=== PATIENT | female | born 1935 | race Caucasian/White ===

== ENCOUNTER → 2023-07-04 13:43 | Outpatient (REF) | payer OTHER, SELFPAY | LOC: RAD 13:43 | PROVIDERS: ATTENDING PHYSICIAN Internal Medicine | DX: M25.539 Pain in unspecified wrist (principal); M79.643 Pain in unspecified hand | CPT/HCPCS: 73110; 73130 ==

== ENCOUNTER 2023-07-10 13:14 | Emergency (ER) | payer OTHER, SELFPAY ==
[2023-07-10 13:16] VITALS: BP 132/78
--- NOTE | 2023-07-10 15:59 | ED.GENMED ---
History of Present Illness
General
Chief Complaint: Skin Problem
Source: patient
Exam Limitations: none
Time Seen by Provider: 07/10/23 15:43
Travel History
Have you had any contact with someone who has COVID-19?: No
Do you have any symptoms of coronavirus? Fever > 100 degrees, chills, cough, shortness of breath, sore throat, loss of taste or smell, muscle aches, or headache?: No
History of Present Illness
History of Present Illness:
87-year-old female presents with daughter who states the left upper extremity and left leg have been increasingly swollen. She was discharged to [facility] 12 days ago after a fall. Does have a subdural hematoma. She had x-rays performed
of her left shoulder then and suction as an outpatient had x-rays of her left hand although these were negative. She is not anticoagulated but they noticed large bruising to the left shoulder. Over time the left hand has been more red and swollen.
She has dementia. No reported fever. Daughter notes she is less active than usual. They also note increased swelling in the left leg. No reported difficulty breathing. No other complaints at this time
Past History
Past History
ED Past Medical History: CVA (TIA), HTN, Other (Vitamin D deficiency, scoliosis) and Other (Dementia)
ED Past Surgical History: None
Social History
Tobacco: Non-smoker
Alcohol: None
Drug: None
Personal:
Living: with family
Employment: Retired
Family History
Family History: Other (Mother with hypertension and [place])
Phy Exam
Physical Exam
Physical Exam:
General: Well-appearing female no acute respiratory distress
HEENT: Normocephalic atraumatic
Heart: Regular rate and rhythm no murmurs
Lungs: Clear no wheeze or rales
Extremities: Significant edema noted left upper extremity and left lower extremity. No cyanosis. There is erythema noted to the left hand with associated swelling.
Neurologic: Alert ambulatory. Good muscle tone
Course
Orders/Labs/Results
Orders:
Orders
07/10/23 15:56
Venous Doppler Lwr Ext Left [US Periph Venous LOWER Ext LT] Urgent
Comment:
Reason For Exam: swelling
Venous Doppler Upr Ext Left [US Periph Venous UPPER Ext LT] Urgent
Comment:
Reason For Exam: swelling
07/10/23 17:32
Complete Blood Count/With Diff Urgent
Comprehensive Metabolic Panel Urgent
Lactic Acid Urgent
NT-proBNP Urgent
Abnormal Lab Results
07/10/23
17:32
RBC 3.63 L 10^6/uL
(4.20-5.40)
Hgb 11.6 L g/dL
(12.0-16.0)
Hct 35.3 L %
(37.0-47.0)
MCH 32.0 H pg
(27.0-31.0)
MCHC 32.9 L g/dL
(33.0-37.0)
Plt Count 465 H 10^3/uL
(130-400)
Lymphocytes % 17.6 L %
(20.5-51.1)
Creatinine 0.4 L mg/dL
(0.6-1.0)
Glucose 122 H mg/dl
(70-99)
Alkaline Phosphatase 171 H U/L
(38-126)
Albumin 3.3 L g/dl
(3.5-5.0)
07/10/23 17:32
07/10/23 17:32
Vital Signs
Initial and Last Documented VS:
Initial Vital Signs
Temp Pulse Resp BP Pulse Ox
97.8 F 97 18 132/78 98
07/10/23 13:16 07/10/23 13:16 07/10/23 13:16 07/10/23 13:16 07/10/23 13:16
Last Documented Vital Signs
Temp Pulse Resp BP Pulse Ox
99.7 F 92 20 158/84 95
07/10/23 17:20 07/10/23 17:20 07/10/23 17:20 07/10/23 17:20 07/10/23 17:20
MDM/Problems Addressed
Differential Diagnosis Includes:
Swelling to left arm and leg. Question dependent edema from contusions versus DVTs. Question also cellulitis given the erythema. Ultrasounds of the left arm and leg are pending. Will check labs.
*Critical Care Note
Total Time (30-74mins, 75-104mins- exclusive of procedures): Not Applicable
Update Note
Update Note:
Ultrasound left upper and lower extremity were negative for DVT. Lactic normal white count normal. Question inflammatory response in left wrist versus early cellulitis. Started on Keflex to cover. She has appointment with orthopedics tomorrow.
No indication for admission at this time. Stable for discharge
ED Attending Note
-
Portions of this chart may have been created with voice recognition software.� Occasional wrong word or��sound alike� substitutions may have occurred due to the inherent limitations of voice recognition software.
Discharge Plan
Departure
Patient Disposition: Home (Routine Discharge)
Date of Disposition: 07/10/23
Time of Disposition: 18:40
Patient with high blood pressure during this ER visit?: No
Discharge Problem:
Edema
Instructions: Dependent Edema (DC), Cellulitis (Skin Infection), Adult (DC)
Prescriptions:
New
cephalexin 500 mg capsule
500 mg PO TID 7 Days Qty: 21 0RF
No Action
ergocalciferol (vitamin D2) 2,000 UNIT tablet
50,000 unit PO .[id number]
Patient Comments:
On Monday
amlodipine 5 MG tablet
5 mg PO QPM
aspirin 81 MG tablet,delayed release (DR/EC)
81 mg PO QPM
cefuroxime axetil 500 MG tablet
500 mg PO BID Qty: 10 0RF
azithromycin [Zithromax] 500 MG tablet
500 mg PO DAILY Qty: 5 0RF
albuterol sulfate [ProAir HFA] 90 mcg/actuation HFA aerosol inhaler
1 puff inhalation Q4HPRN PRN (Reason: shortness of breath) Qty: 6.7 0RF
cephalexin 500 mg capsule
500 mg PO BID 7 Days Qty: 14 0RF
Referrals:
Desiree Sanchez MD [Family Provider] -
Activity Restrictions/Additional Instructions:
Elevate arm for swelling. Use warm compresses as well. Use antibiotic as directed. Please return here for worsening send otherwise follow-up with orthopedics as planned
Interventions
Interventions:
*Risk Screen - Suicide Last Done: 07/10/23 13:16
*General Assessment Last Done: 07/10/23 13:16
*Neglect/Abuse Screening Last Done: 07/10/23 13:16
Discharge Date and Time
Print Language: ZAMBIAN
[2023-07-10 17:17] VITALS: BP 158/84
[2023-07-10 17:20] VITALS: BP 158/84
[2023-07-10 17:21] VITALS: BMI 29.8
[2023-07-10 17:40] LABS: % Basophils 0.6 % (0-2); % Eosinophils 0.8 % (0-6); % Immature Granulocytes 0.2 % (0-0.5); % Lymphocytes 17.6 % (20.5-51.1); % Monocytes 6.9 % (1.7-9.3); % Neutrophils 73.9 % (42.2-75.2); Absolute Basophils 0.1 10^3/uL (0-0.2); Absolute Eosinophils 0.1 10^3/uL (0-0.7); Absolute Lymphocytes 1.5 10^3/uL (1.2-3.4); Absolute Monocytes 0.6 10^3/uL (0.1-0.6); Absolute Neutrophils 6.1 10^3/uL (1.4-6.5); Hematocrit 35.3 % (37.0-47.0); Hemoglobin 11.6 g/dL (12.0-16.0); Mean Corp Hgb Conc. 32.9 g/dL (33.0-37.0); Mean Corpuscular Volume 97.2 fL (81.0-99.0); Nucleated Red Blood Cells % 0 %; Platelet Count 465 10^3/uL (130-400); Red Blood Cell Count 3.63 10^6/uL (4.20-5.40); Red Cell Dist. Width 13.4 % (11.5-14.5); White Blood Cell Count 8.2 10^3/uL (4.8-10.8)
[2023-07-10 17:54] LABS: ALT (SGPT) 23 U/L (0-35); AST (SGOT) 26 U/L (14-36); Albumin 3.3 g/dl (3.5-5.0); Alkaline Phosphatase 171 U/L (38-126); Blood Urea Nitrogen 12 mg/dl (7-17); Calcium 8.8 mg/dl (8.4-10.2); Carbon Dioxide 27 mmol/L (22-30); Chloride 102 mmol/L (98-107); Estimated Creatinine Clearance 48 ml/min; Glucose 122 mg/dl (70-99); Potassium 3.9 mmol/L (3.5-5.1); Sodium 136 mmol/L (135-145); Total Bilirubin 0.4 mg/dl (0.2-1.3); Total Protein 6.5 g/dl (6.3-8.2); eGFR > 60.00
[2023-07-10 18:00] VITALS: BP 148/78
[2023-07-10 18:02] LABS: NT-proBNP 105 pg/ml
[2023-07-10 18:24] LABS: Lactic Acid 1.3 mmol/L (0.7-2.0)
[2023-07-10 19:00] VITALS: BP 157/78
== END 2023-07-10 19:39 | disposition home or self-care (01) ==
LOC: EMR 13:14
PROVIDERS: Physician Assistant; EMERGENCY PHYSICIAN Emergency Medicine; FAMILY PHYSICIAN Internal Medicine
DX: R60.9 Edema, unspecified (principal); S40.012A Contusion of left shoulder, initial encounter; X58.XXXA Exposure to other specified factors, initial encounter
CPT/HCPCS: 99284; 80053; 83605; 83880; 85025; 93971

== ENCOUNTER → 2023-11-08 13:52 | Outpatient (REF) | payer OTHER, SELFPAY | LOC: HWRAD 13:52 | PROVIDERS: ATTENDING PHYSICIAN Nurse Practitioner Family | DX: R39.9 Unspecified symptoms and signs involving the genitourinary system (principal) | CPT/HCPCS: 76770 ==

== ENCOUNTER 2024-01-24 20:12 | Inpatient (IN) | payer OTHER, SELFPAY ==
[2024-01-24] VITALS (7 sets, daily range): BP systolic 129–195; BP diastolic 64–97; BMI 26.1
--- NOTE | 2024-01-24 16:44 | ED.GENMED ---
History of Present Illness
General
Chief Complaint: Weakness
Source: ambulance crew
Exam Limitations: dementia
Time Seen by Provider: 01/24/24 16:42
History of Present Illness
History of Present Illness:
See MDM
Past History
Past History
ED Past Medical History: CVA (TIA), HTN, Other (Vitamin D deficiency, scoliosis) and Other (Dementia)
ED Past Surgical History: None
Social History
Tobacco: Non-smoker
Alcohol: None
Drug: None
Personal:
Living: with family
Employment: Retired
Family History
Family History: Other (Mother with hypertension and [place])
Phy Exam
Physical Exam
Physical Exam:
See MDM
Sepsis
Sepsis Screening
Sepsis Assessment: Sepsis
Sepsis Screen
Sepsis Screen: Sepsis
Date: 01/24/24
Time: 19:07
Course
Orders/Labs/Results
Orders:
Orders
01/24/24 16:48
Straight cath- Treatment ONCE
01/24/24 17:01
Urinalysis Reflex To Culture Urgent
Date Specimen was Collected: 01/24/24
Time Specimen was Collected: 16:59
Urine Microscopic Reflex Cult Urgent
Urine Culture Urgent
RICHARD Source: U
Specimen Description:
Date Specimen was Collected: 01/24/24
Time Specimen was Collected: 16:59
01/24/24 17:02
0.9% Sodium Chloride 1000 ml [Nss] 1,000 ml IV BOLUS
Acetaminophen [Tylenol/Feverall] 650 mg RECTAL NOW STA
01/24/24 17:17
Complete Blood Count/With Diff Urgent
Comprehensive Metabolic Panel Urgent
Lactic Acid Q4H
Comment: CANCEL 2nd LACTIC ACID IF 1st LACTIC ACID IS LESS THAN 2
Blood Culture Q30M
RICHARD Source: Blood/Venous
Specimen Description:
01/24/24 17:45
Blood Culture Q30M
RICHARD Source: Blood/Venous
Specimen Description:
01/24/24 17:59
CR Chest Portable - 1 View Urgent
Comment:
Reason For Exam: fever, weakness
Reason Study Needs to be Portable: Patient Unstable
01/24/24 19:05
Influenza A+B Rapid Molecular Urgent
RICHARD Source: Nasal Swab
Specimen Description:
Cefepime HCl [Maxipime] 1,000 mg IV NOW STA
01/24/24 19:06
COVID-19 Antigen Urgent
Source: Nasal Swab
Abnormal Lab Results
01/24/24 01/24/24
17:01 17:17
WBC 12.1 H 10^3/uL
(4.8-10.8)
MCHC 32.3 L g/dL
(33.0-37.0)
Plt Count 424 H 10^3/uL
(130-400)
Absolute Neuts (auto) 10.0 H 10^3/uL
(1.4-6.5)
Neutrophils % 82.6 H %
(42.2-75.2)
Lymphocytes % 12.2 L %
(20.5-51.1)
Carbon Dioxide 21 L mmol/L
(22-30)
BUN 19 H mg/dl
(7-17)
Glucose 120 H mg/dl
(70-99)
Alkaline Phosphatase 131 H U/L
(38-126)
Urine Ketones 3+ A
(Negative)
Ur Occult Blood Reflex 3+ A
(Negative)
Urine RBC 7-10 A /HPF
(0-2)
Urine Bacteria (Reflex) Moderate A
(Negative)
01/24/24 17:17
01/24/24 17:17
Vital Signs
Initial and Last Documented VS:
Initial Vital Signs
Temp Pulse Resp BP Pulse Ox
98.4 F 110 22 161/89 94
01/24/24 16:43 01/24/24 16:43 01/24/24 16:43 01/24/24 16:43 01/24/24 16:43
Last Documented Vital Signs
Temp Pulse Resp BP Pulse Ox
101.5 F H 106 20 153/68 94
01/24/24 18:39 01/24/24 18:00 01/24/24 18:00 01/24/24 18:00 01/24/24 18:00
MDM/Problems Addressed
Differential Diagnosis Includes:
HPI and MDM Narrative:
88-year-old female presenting with concern for a UTI. Per EMS, patient is significant demented and disoriented. On exam, patient is demented and not answering questions appropriately. EMS stating that she was recently taken off antibiotics for
chronic UTI. Will obtain basic blood work and check urine
Physical exam
General: Confused, disoriented, laying in bed comfortably
HEENT: protecting airway
Neck: appears supple
CV: No evidence of cyanosis
Resp: No accessory muscle use. Lungs clear
Abd: Non-distended. Soft and nontender
Extremities: No deformities
Neuro: alert
Psych: flat affect
Skin: Intact
Problems Addressed including Acute and Chronic Conditions affecting care:
1. Confusion
Acuity: acute on chronic
Prognosis: stable
Details: Urinalysis pending, will obtain basic blood
Updates
Patient found to be febrile. Will obtain cultures, lactic acid and provide Tylenol
Although urinalysis does not point to urinary tract infection, it is extremely malodorous. Given that there is bacteria, will start cefepime. Will look for alternative source of infection such as COVID and flu. Chest x-ray performed showing no
obvious pneumonia. On multiple reexaminations, patient continues to have a nontender abdomen
Differential Diagnosis (but not limited to): UTI, hyponatremia, dehydration
Testing considered: Chest x-ray but lungs clear
Drug therapy (if applicable): OTC meds, please see d/c instruction regarding Rx drugs
Amount and/or Complexity of Data Reviewed
Clinical info obtained from: EMS
External data reviewed: N/A
Labs I independently reviewed (but not limited to): Leukocytosis
Radiology: X-ray independently reviewed: Chest x-ray clear
Pulse Ox: not hypoxic
EKG independently reviewed: N/A
Microsystems Engineer: Sinus rhythm
Critical Care: N/A
Risk of Complication:
Social Determinants of health: Good social support
Discussed with other providers: Hospitalist
Escalation of Care includes Admit/Obs: Given the fever, increased confusion and malodorous urine, will admit
Occasional wrong word or 'sound a like' substitutions may have occurred due to the inherent limitations of voice recognition software. Read the chart carefully and recognize, using context, where substitutions have occurred.
*Critical Care Note
Total Time (30-74mins, 75-104mins- exclusive of procedures): Not Applicable
ED Attending Note
-
Portions of this chart may have been created with voice recognition software.� Occasional wrong word or��sound alike� substitutions may have occurred due to the inherent limitations of voice recognition software.
Discharge Plan
Departure
Patient Disposition: Admit
Date of Disposition: 01/24/24
Time of Disposition: 19:07
Admit to: Med/Surg
Presentation/result/management discussed w/ accepting MD/DO: Hospitalist
Discharge Problem:
Bacteriuria
Prescriptions:
No Action
ergocalciferol (vitamin D2) 2,000 UNIT tablet
50,000 unit PO .[id number]
Patient Comments:
On Monday
amlodipine 5 MG tablet
5 mg PO QPM
aspirin 81 MG tablet,delayed release (DR/EC)
81 mg PO QPM
cefuroxime axetil 500 MG tablet
500 mg PO BID Qty: 10 0RF
azithromycin [Zithromax] 500 MG tablet
500 mg PO DAILY Qty: 5 0RF
albuterol sulfate [ProAir HFA] 90 mcg/actuation HFA aerosol inhaler
1 puff inhalation Q4HPRN PRN (Reason: shortness of breath) Qty: 6.7 0RF
cephalexin 500 mg capsule
500 mg PO BID 7 Days Qty: 14 0RF
cephalexin 500 mg capsule
500 mg PO TID 7 Days Qty: 21 0RF
Referrals:
Génesis Santa CRNP [Family Provider] -
Interventions
Interventions:
*Risk Screen - Suicide Last Done: 01/24/24 16:43
*General Assessment Last Done: 01/24/24 16:43
*Neglect/Abuse Screening Last Done: 01/24/24 16:43
*ED COVID-19 Vaccine History Last Done: 01/24/24 16:43
ED- Cardiac Assessment Last Done: 01/24/24 17:38
ED- Neurological Assessment Last Done: 01/24/24 17:38
ED- Pulmonary Assessment Last Done: 01/24/24 17:38
Discharge Date and Time
Print Language: GERMAN
[2024-01-24 17:07] LABS: Urine Albumin Trace (Neg - Trace); Urine Bilirubin Negative (Negative); Urine Character Clear (Clear); Urine Color Yellow; Urine Glucose Negative (Negative); Urine Ketone 3+ (Negative); Urine Leukocyte Negative (Negative); Urine Nitrite Negative (Negative); Urine Occult Blood 3+ (Negative); Urine Urobilinogen Negative (Neg - 1+)
[2024-01-24 17:14] LABS: Urine Mucus Moderate
[2024-01-24 17:18] LABS: Urine Bacteria Moderate (Negative); Urine White Cell 0-2 /HPF (0-5)
[2024-01-24] MEDS: NSS 1000 IV ×2 (17:21→23:16)
[2024-01-24] MEDS: TYLENOL/FEVERALL 650 MG RECTAL (17:29)
[2024-01-24 17:31] LABS: % Basophils 0.3 % (0-2); % Eosinophils 0.1 % (0-6); % Immature Granulocytes 0.3 % (0-0.5); % Lymphocytes 12.2 % (20.5-51.1); % Monocytes 4.5 % (1.7-9.3); % Neutrophils 82.6 % (42.2-75.2); Absolute Lymphocytes 1.5 10^3/uL (1.2-3.4); Absolute Monocytes 0.5 10^3/uL (0.1-0.6); Hematocrit 40.3 % (37.0-47.0); Mean Corp Hgb Conc. 32.3 g/dL (33.0-37.0); Mean Corpuscular Hgb 28.6 pg (27.0-31.0); Mean Corpuscular Volume 88.6 fL (81.0-99.0); Mean Platelet Volume 8.3 fL (7.4-10.4); Nucleated Red Blood Cells % 0 %; Platelet Count 424 10^3/uL (130-400); Red Blood Cell Count 4.55 10^6/uL (4.20-5.40); Red Cell Dist. Width 14.2 % (11.5-14.5); White Blood Cell Count 12.1 10^3/uL (4.8-10.8)
[2024-01-24 17:44] LABS: ALT (SGPT) 15 U/L (0-35); AST (SGOT) 22 U/L (14-36); Albumin 4.2 g/dl (3.5-5.0); Alkaline Phosphatase 131 U/L (38-126); Blood Urea Nitrogen 19 mg/dl (7-17); Calcium 9.5 mg/dl (8.4-10.2); Carbon Dioxide 21 mmol/L (22-30); Chloride 104 mmol/L (98-107); Glucose 120 mg/dl (70-99); Potassium 4.3 mmol/L (3.5-5.1); Sodium 141 mmol/L (135-145); Total Bilirubin 0.8 mg/dl (0.2-1.3); Total Protein 7.6 g/dl (6.3-8.2); eGFR > 60.00
[2024-01-24 18:12] LABS: Lactic Acid 1.3 mmol/L (0.7-2.0)
[2024-01-24] MEDS: MAXIPIME 1000 MG IV (19:22)
[2024-01-24 20:00] LABS: COVID-19 Antigen Negative (Negative)
--- NOTE | 2024-01-24 20:05 | HPS.HSE ---
Family Physician
-
Family Physician: YORDAN Joe
Chief Complaint
-
Weakness
History of Present Illness
This is an 88-year-old female with past medical history significant for dementia, hypertension, prior CVA, urinary tract infections who presents from home with worsening weakness and lethargy over the last 2 days.
Patient has advanced dementia and lives at home with family and is mobile with assistance and assistive devices at home. She also is able to tolerate p.o. self and generally has a good appetite. Over the last 2 days the patient has been more
somnolent getting up late in the afternoon and more difficult to arouse. Family believe that she had some deep breathing but no cough. They noted some puffiness of her face and fevers at home. She had no diarrhea no nausea or vomiting. She was
unable to verbalize any complaints of self. They said she eat and then immediately go back to sleep. She has no known sick contacts at home. She has no recent hospitalizations. She has had no recent antibiotic use. Denies any bedsores or ulcers
or skin changes. No joint swelling or redness.
In the emergency department the patient had a fever of 101.5, temperature blood pressure was 150/60 and she was tachycardic to 106. She was satting 94 to 96% on room air. Chest x-ray shows no acute infiltrates. UA was positive for bacteria and
blood but no leukocytosis. CBC shows a CBC shows leukocytosis to 12,000 but is otherwise unremarkable. BUN/creatinine and electrolytes were within normal limits.
Medical History
Past Medical History
Past Medical History: Reports Dementia and HTN
Additional Past Medical History:
Prior UTI
Past Surgical History: Reports None
Social History
Unable to obtain full social history at this time due to: Dementia
Tobacco: Non-smoker
Alcohol: None
Drug: None
Personal:
Living: With Family
Employment: Retired
Family History
Family History: Not pertinent
Allergies / Home Medications
Allergies reflects when Allergies were last updated in [employer].
Home Medications with original date entered in [employer]
Allergy/Medication List:
Allergies
Allergy/AdvReac Type Severity Reaction Status Date / Time
No Known Allergies Allergy Verified 01/24/24 19:56
Home Medications
amlodipine 5 mg tablet 5 mg PO QPM 06/14/17
aspirin 81 mg tablet,delayed release 81 mg PO QPM 06/14/17
methenamine hippurate 1 gram tablet 1 g PO QPM 01/24/24
Review of Systems
-
History Source: Family
Constitutional: Reports Fever and Sleep Disturbance
EENT: Reports No Symptoms
Respiratory: Reports No Symptoms
Cardiac: Reports No Symptoms
Abdomen/GI: Reports No Symptoms
: Reports No Symptoms
Musculoskeletal: Reports No Symptoms
Skin: Reports No Symptoms
Neurological: Reports Weakness
Endocrine: Reports No Symptoms
Hematologic/Lymphatic: Reports No Symptoms
Psych: Reports No Symptoms
Physical Exam
Vital Signs
Vital Signs
Temp Pulse Resp BP Pulse Ox
101.5 F H 102 25 141/71 94
01/24/24 18:39 01/24/24 19:45 01/24/24 19:45 01/24/24 19:00 01/24/24 19:45
Physical Exam
General: No Apparent Distress and Fever
HEENT: NormoCephalic, Anicteric, PERRLA, No Ptosis, Nose Appears Normal, Neck Nontender and Other (dry mucus membrnase)
Respiratory: Clear
Cardiac: S1/S2 and Regular Rhythm
Breast: Deferred by me
GI: Soft, Non Distended and Normal Bowel Sounds
Rectal: Deferred by Provider
Genito-urinary: Clear Urine
Musculoskeletal: No Clubbing, No Cyanosis and No Edema
Skin: Warm
Neuro: Awake, Alert, Oriented (not oriented to person, place or time), Nonfocal/grossly intact and Other (not interactive, )
Hematologic/Lymphatic: No Lymphadenopathy
Psych: Calm
Laboratory Results
-
01/24/24 17:17
01/24/24 17:17
Laboratory Results
Lactic Acid Cancelled 01/24/24 21:15
Total Bilirubin 0.8 mg/dl (0.2-1.3) 01/24/24 17:17
AST 22 U/L (14-36) 01/24/24 17:17
ALT 15 U/L (0-35) 01/24/24 17:17
Alkaline Phosphatase 131 U/L (38-126) H 01/24/24 17:17
Data Reviewed
-
Diagnostic Radiology: Image Personally Visualized and interpreted
Lab Data: Labs Reviewed by me
Old Records: Reviewed
Impression/Plan
-
IMPRESSION:
88-year-old female with advanced dementia who presents to the emergency department with weakness and fevers. Initial workup in the emergency department is mostly uninformative with negative COVID flu and chest x-ray was clear. UA was positive for
bacteria and blood and had a foul-smelling odor. Suspected UTI. Abdominal exam was benign but equivocal.
PLAN:
1. Fever - UTI suspected with possibly pyelonephritis but source not entirely clear at this time
- admit to med/surg
- blood cultures and urine cultures sent
- started abx, cefepime in Ed, will continue w/ ceftriaxone for now
- antipyretics and IV fluids.
-w/ blood in urine, will get ct a/p to rule out obstructing stone and intraabdominal process and perhaps confirm the pyelonephritis
2. Dementia - appear to have advance dementia but is being cared for at home. Ambulatory minimally with assist
- PT evaluation
- regular diet tolerated at home.
3. HTN
- continue amlodipine,
- asa 81 mg for strokes
DVT PPX - lovenox sq
Code status - DNR
[2024-01-25] MEDS: FLAGYL 500 MG 100 IV (00:39)
--- NOTE | 2024-01-25 05:20 | PTCARENOTE ---
Pt received from ED via stretcher. Pulled over to bed x2 w/o incident. AAOx1, plesantly confused, drowsy and lethargic. Admission completed w/daughter Karlie. Full physical assessment as documented (refer to worklist). NSS infusing via #22 RH at
80 mL/hr without complication. Bed alarm active for safety. Call salazar within reach. Plan of care ongoing.
[2024-01-25 07:30] VITALS: BP 163/81
[2024-01-25 08:12] LABS: Blood Urea Nitrogen 15 mg/dl (7-17); Calcium 8.9 mg/dl (8.4-10.2); Carbon Dioxide 26 mmol/L (22-30); Chloride 104 mmol/L (98-107); Estimated Creatinine Clearance 36 ml/min; Glucose 111 mg/dl (70-99); Procalcitonin 0.28 ng/ml (0.0-0.25); Sodium 142 mmol/L (135-145); eGFR > 60.00
[2024-01-25] MEDS: ZOSYN 50 IV ×3 (08:54→19:19)
[2024-01-25 09:09] LABS: Hematocrit 38.2 % (37.0-47.0); Hemoglobin 11.8 g/dL (12.0-16.0); Mean Corp Hgb Conc. 30.9 g/dL (33.0-37.0); Mean Corpuscular Hgb 28.3 pg (27.0-31.0); Mean Corpuscular Volume 91.6 fL (81.0-99.0); Mean Platelet Volume 8.4 fL (7.4-10.4); Platelet Count 363 10^3/uL (130-400); Red Blood Cell Count 4.17 10^6/uL (4.20-5.40); Red Cell Dist. Width 14.4 % (11.5-14.5); White Blood Cell Count 11.1 10^3/uL (4.8-10.8)
--- NOTE | 2024-01-25 10:03 | W.PN.HOSP.TC ---
Today's Communication/Plan
-
See PN
Assessment / Plan
Assessment / Plan
88yo F with Advanced dementia, resident of memory care unit, PMHx of recurrent UTI, HTN, CVA sent with fevers and AMS . Recently was stopped on UTI ppx with hippurate. Found UTI and colitis with constipation. Patient is awake and cooperative with
significant dementia though.
A/P:
#UTI
#Concern for stercoral colitis
Zosyn
Laxatives
UCX
Bcx
#Advanced dementia
d/c back to memory care unit when able
PT/OT
#Hx of CVA
on ASA
unclear why no statin - start Lipitor
#4.4cm R ovarian cyst
no follow up advised
#DIverticulosis w/o diverticulitis
mike fiber diet
#DJD
tylenol PRN
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
LFT WNL
no clinical significance
With advanced dementia - questionable if further w/u needed
Alk.phos might be from bone origin
WIll defer to facility doctor
#essential HTN
cont Norvasc
DVT ppx lovenox
DNR/DNI as per paperwork on admission
I have spent at least 59min reviewing chart, test results, communication with consultants and direct patient care
Anticipated Discharge: 24 - 48 hours
Subjective/Interval History
-
Date of Service: January 25, 2024
Objective Data
-
Labs:
Laboratory Results
01/25/24 01/25/24
07:16 07:17
WBC 11.1 H
Hgb 11.8 L
Hct 38.2
Plt Count 363
Sodium 142
Potassium 4.0
Chloride 104
Carbon Dioxide 26
BUN 15
Creatinine 0.7
Glucose 111 H
Calcium 8.9
Vital Signs:
Vital Signs
Temp Pulse Resp BP Pulse Ox
98.4 F 86 20 163/81 96
01/25/24 07:30 01/25/24 07:30 01/25/24 07:30 01/25/24 07:30 01/25/24 07:30
I&O
01/24/24 01/25/24 01/26/24
06:59 06:59 06:59
Intake Total 100 / 100 400 / 400
Balance 100 / 100 400 / 400
Review of Systems
-
Unable to obtain full review of systems at this time due to: Dementia
Physical Exam
-
General: No Apparent Distress
HEENT: Normocephalic
Respiratory: Clear to Auscultation
Cardiac: Regular Rhythm
GI: Soft, Nontender and Nondistended
Musculoskeletal: No Clubbing, No Cyanosis and No Edema
Neuro: Awake, Alert, Oriented (to herself) and No Motor Deficits
Psych: Calm and Apparent Dementia
--- NOTE | 2024-01-25 10:42 | CM ---
Pt has dementia. Spoke w/ daughter, Jaron for information
Pt lives w/ other daughter, Karlie, her son-in-law and granddaughter in a [address].
Pt has a lot of family support as both daughters are available and present per Jaron.
Per Jaron, pt prev. independent w/ walker and gets assisted w/ bathing/showering as she is unable to do so due to dementia
Pt also has shower rails for support, Jaron will explore getting some rails for her home for when pt visits
[facility] SNF in the past
[facility] VN/PT in the past. Per Jaron, if HH is recommended, family will poss explore [facility] again or refer to a new agency
PT/OT eval pending. Will await recommendations
Address, points of contact and insurance verified
PCP: Dr. Desiree Sanchez
Pharmacy: [facility]
Plan: Home w/ poss VN/PT; pending PT/OT eval
[2024-01-25 15:59] VITALS: BP 165/69
[2024-01-25 16:25] VITALS: BP 165/69
[2024-01-25 16:27] VITALS: BP 165/61; PULSE 99; O2SAT 97
[2024-01-25] MEDS: LOVENOX 40 MG SC (17:38)
[2024-01-25] MEDS: ASPIR LOW (ENTERIC COATED) 81 MG PO (17:39)
[2024-01-25] MEDS: LIPITOR 40 MG PO (17:39)
[2024-01-25] MEDS: NORVASC 5 MG PO (17:39)
[2024-01-25] MEDS: SENOKOT-S 2 TABLET PO (19:11)
[2024-01-25] MEDS: NSS 1000 IV (21:47)
[2024-01-25 23:42] VITALS: BP 158/119
[2024-01-26] MEDS: ZOSYN 50 IV ×4 (02:30→20:47)
[2024-01-26 03:00] VITALS: BP 141/73
[2024-01-26 08:17] VITALS: BP 143/72
[2024-01-26 08:24] LABS: % Basophils 0.2 % (0-2); % Eosinophils 0.4 % (0-6); % Immature Granulocytes 0.5 % (0-0.5); % Lymphocytes 16.5 % (20.5-51.1); % Monocytes 8.3 % (1.7-9.3); % Neutrophils 74.1 % (42.2-75.2); Absolute Immature Granulocytes 0.1 10^3/uL (0-0.05); Absolute Lymphocytes 1.6 10^3/uL (1.2-3.4); Absolute Monocytes 0.8 10^3/uL (0.1-0.6); Hematocrit 33.3 % (37.0-47.0); Hemoglobin 10.4 g/dL (12.0-16.0); Mean Corp Hgb Conc. 31.2 g/dL (33.0-37.0); Mean Corpuscular Hgb 28.9 pg (27.0-31.0); Mean Corpuscular Volume 92.5 fL (81.0-99.0); Mean Platelet Volume 8.8 fL (7.4-10.4); Nucleated Red Blood Cells % 0 %; Platelet Count 308 10^3/uL (130-400); Red Cell Dist. Width 14.4 % (11.5-14.5); White Blood Cell Count 9.4 10^3/uL (4.8-10.8)
[2024-01-26 08:44] LABS: ALT (SGPT) 12 U/L (0-35); AST (SGOT) 18 U/L (14-36); Albumin 2.9 g/dl (3.5-5.0); Alkaline Phosphatase 95 U/L (38-126); Blood Urea Nitrogen 19 mg/dl (7-17); Calcium 8.4 mg/dl (8.4-10.2); Carbon Dioxide 25 mmol/L (22-30); Chloride 107 mmol/L (98-107); Estimated Creatinine Clearance 42 ml/min; Glucose 130 mg/dl (70-99); Potassium 3.4 mmol/L (3.5-5.1); Sodium 141 mmol/L (135-145); Total Bilirubin 0.5 mg/dl (0.2-1.3); Total Protein 5.8 g/dl (6.3-8.2); eGFR > 60.00
[2024-01-26] MEDS: MIRALAX 17 GRAMS PO (10:05)
[2024-01-26] MEDS: SENOKOT-S 2 TABLET PO ×2 (10:05→20:42)
[2024-01-26] MEDS: FLUSH (NSS) 1 FLUSH IV ×3 (10:06→14:02)
--- NOTE | 2024-01-26 10:21 | PHA.VAN.IN ---
Assessment
- Assessment
Renal Function: Appears similar to baseline (0.8 on 04/20/2022)
Maximum Temperature: 100.7 on 01/25/24 23:42
Minimum Temperature: 97.6 on 01/26/24 08:17
Concomitant Antimicrobials: Piperacillin-tazobactam
AUC Dosing Plan
- Dosing Variables
Dosing Weight (kg): 51
Dosing CrCl (ml/min): 42
Vd coefficient (L/kg): 0.7
- Empiric Dosing
Initial / Loading Dose: Vancomycin 1000mg IV x 1 dose today (Per Dr Ballesteros)
Maintenance Regimen: Vancomycin 750mg IV Q24h start 01/27/24 at 06:00
Estimated AUC (mcg*h/mL): 546
Estimated Peak (mcg*h/mL): 34
Estimated Trough (mcg/ml): 14
Estimated Half Life (H): 18
- Monitoring
No levels ordered at this time: Will order levels according to vancomycin dosing protocol
Pharmacokinetics Vancomycin I
- -
Patient Age: 88
Patient Sex: Female
Vancomycin Day #: 1
Indication: Bacteremia
Requesting Provider: Dr Aura Ballesteros
Pertinent Antimicrobial Allergies:
No antibiotic allergies
Height / Weight:
Height 4 ft 7 in
Actual Weight 50.944 kg
Pertinent Past Medical History: Frequent UTIs recent cipro x 5 days 01/11/24
- Vital Signs / Lab Results
Temp Pulse Resp BP Pulse Ox
97.6 F 96 17 143/72 96
01/26/24 08:17 01/26/24 08:17 01/26/24 08:17 01/26/24 08:17 01/26/24 09:57
Lab Results - Hematology
01/24/24 01/25/24 01/26/24
17:17 07:16 07:18
WBC 12.1 H 11.1 H 9.4
Lab Results - Chemistry
01/24/24 01/25/24 01/26/24
17:17 07:17 07:18
BUN 19 H 15 19 H
Creatinine 0.7 0.7 0.6
Estimated Creat Clear 36 42
Albumin 4.2 2.9 L
01/24/24 01/24/24
17:17 21:15
Lactic Acid 1.3 Cancelled
Lab Results - Urine
01/24/24
17:01
Urine Nitrite (Reflex) Negative
Leukocyte Esterase Rfl Negative
Urine WBC (Reflex) 0-2
Urine Bacteria (Reflex) Moderate A
Microbiology Results
01/24/24 19:26 Blood Culture - Preliminary
Blood/Venous Positive culture in progress
Gram Stain - Preliminary
01/24/24 17:17 Blood Culture - Preliminary
Blood/Venous No Growth in 24 hours- Final report to follow
01/24/24 19:26 Influenza Types A & B (JESUS) - Final
Nasal Swab Negative for Influenza A & B, NAAT
Negative results must be combined with clinical observations
and patient history.
Nucleic Acid Amplification test (NAAT)performed on the
[employer] platform.
[2024-01-26] MEDS: VANCOCIN 200 IV (10:46)
[2024-01-26 11:59] VITALS: BP 120/87
--- NOTE | 2024-01-26 12:09 | W.PN.HOSP.TC ---
Today's Communication/Plan
-
cont ceftriaxone
add Vanco and repeat Bcx
PT/OT to cont working with the patient to determine disposition
Assessment / Plan
Assessment / Plan
88yo F with Advanced dementia, PMHx of recurrent UTI, HTN, CVA sent with fevers and AMS . Recently was stopped on UTI ppx with hippurate. Found UTI and colitis with constipation. Patient is awake and cooperative with significant dementia.
A/P:
#UTI
#Concern for stercoral colitis
Zosyn
Laxatives
UCX
#Bacteremia
1 set with GPC - suspect contaminant
Repeat Bcx
VAnco pending identification of bacteria
#Advanced dementia
Patient lives at home with a lot of family support
PT/OT - patient is poorly cooperative, needs family encouragement for participation
#Hx of CVA
on ASA
unclear why no statin - start Lipitor
#4.4cm R ovarian cyst
no follow up advised
#Diverticulosis w/o diverticulitis
mike fiber diet
#DJD
tylenol PRN
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
LFT WNL
With advanced dementia - questionable if further w/u needed
Will defer to facility doctor
#essential HTN
cont Norvasc
DVT ppx lovenox
DNR/DNI as per paperwork on admission
I have spent at least 39min reviewing chart, test results, communication with consultants and direct patient care
Anticipated Discharge: > 48 hours
Subjective/Interval History
-
Date of Service: January 26, 2024
Objective Data
-
Labs:
Laboratory Results
01/26/24
07:18
WBC 9.4
Hgb 10.4 L
Hct 33.3 L
Plt Count 308
Sodium 141
Potassium 3.4 L
Chloride 107
Carbon Dioxide 25
BUN 19 H
Creatinine 0.6
Glucose 130 H
Calcium 8.4
Total Bilirubin 0.5
AST 18
ALT 12
Alkaline Phosphatase 95
Vital Signs:
Vital Signs
Temp Pulse Resp BP Pulse Ox
97.6 F 96 17 143/72 96
01/26/24 08:17 01/26/24 08:17 01/26/24 08:17 01/26/24 08:17 01/26/24 09:57
I&O
01/25/24 01/26/24 01/27/24
06:59 06:59 06:59
Intake Total 100 / 100 1380 / 1380
Balance 100 / 100 1380 / 1380
Review of Systems
-
Unable to obtain full review of systems at this time due to: Dementia
Physical Exam
-
General: No Apparent Distress
HEENT: Normocephalic
Respiratory: Clear to Auscultation
Cardiac: Regular Rhythm
GI: Soft, Nontender and Nondistended
Musculoskeletal: No Clubbing, No Cyanosis and No Edema
Neuro: Awake and Alert
Psych: Apparent Dementia
[2024-01-26] MEDS: TYLENOL 650 MG PO ×2 (12:13→20:51)
--- NOTE | 2024-01-26 13:59 | CM ---
Chart reviewed. Per PT/OT, currently rec. SNF vs HH.
CM spoke w/ pt daughter, Jaron, re therapy recommendation
Per Jaron, family does not want pt to go to SNF and is agreeable for pt to d/c home w/ HC
[facility] identified for VN/PT. Referral submitted in [facility]
Daughter requested for hospitalist to speak w/ her sister who is currently bedside w/ pt
CAROLYN TT hospitalist to speak w/ family and for VN/PT order
Plan: Home w/ [facility] ([facility])
[2024-01-26 16:05] VITALS: BP 131/74
--- NOTE | 2024-01-26 16:49 | PTCARENOTE ---
Pt sleeping but easily arousable; oriented to name; occ answers 'yes' and 'no ' to questions; verbalizes minimally. pt pleasant and cooperative, follows commands appropriately. BOWER slowly. VSS. On room air- pulseox 97%, no SOB noted. Abd soft,
rounded, shweta PO.. Incont urine. Rt fingers with trace edema; Keeping RUE elevated on pillow. Rt knuckles sl reddened; pt states rt hand 'hurts'; Dr. Ballesteros aware. Resting quietly at present; family at bedside. Will continue to monitor.
[2024-01-26] MEDS: ASPIR LOW (ENTERIC COATED) 81 MG PO (17:38)
[2024-01-26] MEDS: LIPITOR 40 MG PO (17:38)
[2024-01-26] MEDS: NORVASC 5 MG PO (17:38)
[2024-01-26] MEDS: LOVENOX 40 MG SC (17:39)
[2024-01-26 23:00] VITALS: BP 123/61
[2024-01-27] MEDS: ZOSYN 50 IV ×4 (01:23→19:54)
[2024-01-27] MEDS: VANCOCIN 150 IV (05:12)
[2024-01-27 06:42] LABS: % Basophils 0.5 % (0-2); % Eosinophils 2.4 % (0-6); % Immature Granulocytes 0.3 % (0-0.5); % Lymphocytes 19.3 % (20.5-51.1); % Monocytes 8.1 % (1.7-9.3); % Neutrophils 69.4 % (42.2-75.2); Absolute Eosinophils 0.2 10^3/uL (0-0.7); Absolute Lymphocytes 1.5 10^3/uL (1.2-3.4); Absolute Monocytes 0.6 10^3/uL (0.1-0.6); Absolute Neutrophils 5.4 10^3/uL (1.4-6.5); Hematocrit 33.4 % (37.0-47.0); Hemoglobin 10.4 g/dL (12.0-16.0); Mean Corp Hgb Conc. 31.1 g/dL (33.0-37.0); Mean Corpuscular Hgb 28.8 pg (27.0-31.0); Mean Corpuscular Volume 92.5 fL (81.0-99.0); Mean Platelet Volume 8.7 fL (7.4-10.4); Nucleated Red Blood Cells % 0 %; Platelet Count 302 10^3/uL (130-400); Red Blood Cell Count 3.61 10^6/uL (4.20-5.40); Red Cell Dist. Width 14.3 % (11.5-14.5); White Blood Cell Count 7.8 10^3/uL (4.8-10.8)
[2024-01-27 07:00] LABS: Blood Urea Nitrogen 11 mg/dl (7-17); Calcium 8.7 mg/dl (8.4-10.2); Carbon Dioxide 29 mmol/L (22-30); Chloride 104 mmol/L (98-107); Estimated Creatinine Clearance 42 ml/min; Glucose 137 mg/dl (70-99); Potassium 3.5 mmol/L (3.5-5.1); Sodium 141 mmol/L (135-145); eGFR > 60.00
[2024-01-27 08:00] VITALS: BP 142/70
[2024-01-27] MEDS: SENOKOT-S 2 TABLET PO (09:28)
[2024-01-27] MEDS: MIRALAX 17 GRAMS PO (09:29)
--- NOTE | 2024-01-27 10:52 | PHA.VAN.FU ---
Vancomycin Assessment / Plan
- Assessment
Renal Function: Stable
WBC's are: WNL
In the past 24 hrs, patient has been: Afebrile
Concomitant Antimicrobials: pip/tazo - renally dosed for now
- Dosing Plan
Continue: vancomycin 750 mg q24h - first dose 01/26 06
- Monitoring Plan
No level(s) ordered at this time: will order levels near steady state
- Follow Up
Pharmacy will continue to follow.
Vancomycin Follow UP
- -
Patient Age: 88
Patient Sex: Female
Vancomycin Day #: 2
Indication: Bacteremia
Requesting Provider: Dr Aura Ballesteros
Pertinent Antimicrobial Allergies:
No antibiotic allergies
Height / Weight:
Height 4 ft 7 in
Actual Weight 50.944 kg
Pertinent Past Medical History: Frequent UTIs recent cipro x 5 days 01/11/24
- Vital Signs / Lab Results
Temp Pulse Resp BP Pulse Ox
97.4 F 85 16 142/70 98
01/27/24 08:00 01/27/24 08:00 01/27/24 08:00 01/27/24 08:00 01/27/24 08:00
Lab Results - Hematology
01/24/24 01/25/24 01/26/24
17:17 07:16 07:18
WBC 12.1 H 11.1 H 9.4
01/27/24
06:02
WBC 7.8
Lab Results - Chemistry
01/24/24 01/25/24 01/26/24
17:17 07:17 07:18
BUN 19 H 15 19 H
Creatinine 0.7 0.7 0.6
Estimated Creat Clear 36 42
Albumin 4.2 2.9 L
01/27/24
06:02
BUN 11
Creatinine 0.6
Estimated Creat Clear 42
Albumin
01/24/24 01/24/24
17:17 21:15
Lactic Acid 1.3 Cancelled
Microbiology Results
01/24/24 17:17 Blood Culture - Preliminary
Blood/Venous No Growth in 48 hours- Final report to follow
01/24/24 19:26 Blood Culture - Preliminary
Blood/Venous Coagulase neg. staphylococcus
Additional testing on request
Gram Stain - Preliminary
01/24/24 17:01 Urine Culture - Final
Urine NO GROWTH
--- NOTE | 2024-01-27 11:59 | W.PN.HOSP.TC ---
Today's Communication/Plan
-
enema
XR abd
Assessment / Plan
Assessment / Plan
88yo F with Advanced dementia, PMHx of recurrent UTI, HTN, CVA sent with fevers and AMS . Recently was stopped on UTI ppx with hippurate. Found UTI and colitis with constipation. Patient is awake and cooperative with significant dementia and cannot
provide reliable history. Managed for UTI and constipation with colitis. Ucx neg - empiric zosyn pedning BM. Mentation back to baseline
A/P:
#UTI
#Concern for stercoral colitis
Zosyn
Laxatives
UCX
#Bacteremia
1 set with GPC - suspect contaminant
Repeat Bcx
VAnco pending identification of bacteria
#Advanced dementia
Patient lives at home with a lot of family support
PT/OT - patient is poorly cooperative, needs family encouragement for participation
#Hx of CVA
on ASA
unclear why no statin - start Lipitor
#4.4cm R ovarian cyst
no follow up advised
#Diverticulosis w/o diverticulitis
mike fiber diet
#DJD
tylenol PRN
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
LFT WNL
With advanced dementia - questionable if further w/u needed
Will defer to facility doctor
#essential HTN
cont Norvasc
#b/l hip pain 2/2 DJD
tylenol as needed
#GOC
with advanced dementia - advised eventual hospice
DVT ppx lovenox
DNR/DNI as per paperwork on admission
I have spent at least 39min reviewing chart, test results, communication with consultants and direct patient care
Anticipated Discharge: 24 - 48 hours
Subjective/Interval History
-
Date of Service: January 27, 2024
Objective Data
-
Labs:
Laboratory Results
01/27/24
06:02
WBC 7.8
Hgb 10.4 L
Hct 33.4 L
Plt Count 302
Sodium 141
Potassium 3.5
Chloride 104
Carbon Dioxide 29
BUN 11
Creatinine 0.6
Glucose 137 H
Calcium 8.7
Vital Signs:
Vital Signs
Temp Pulse Resp BP Pulse Ox
97.4 F 85 16 142/70 98
01/27/24 08:00 01/27/24 08:00 01/27/24 08:00 01/27/24 08:00 01/27/24 08:00
I&O
01/26/24 01/27/24 01/28/24
06:59 06:59 06:59
Intake Total 1380 / 1380 1520 / 1520
Balance 1380 / 1380 1520 / 1520
Review of Systems
-
Unable to obtain full review of systems at this time due to: Dementia
History Source: Patient
All other systems: Reviewed and negative
Physical Exam
-
General: No Apparent Distress
HEENT: Normocephalic
Respiratory: Clear to Auscultation
Cardiac: Regular Rhythm
GI: Soft, Nontender and Nondistended
Musculoskeletal: No Clubbing, No Cyanosis and No Edema
Neuro: Awake and Alert
Psych: Apparent Dementia
[2024-01-27] MEDS: FLEET MINERAL OIL ENEMA 133 ML RECTAL (12:31)
[2024-01-27] MEDS: TYLENOL 650 MG PO ×2 (13:28→18:03)
[2024-01-27 15:30] VITALS: BP 129/59
[2024-01-27] MEDS: NORVASC 5 MG PO (18:03)
[2024-01-27] MEDS: LIPITOR 40 MG PO (18:03)
[2024-01-27] MEDS: LOVENOX 40 MG SC (18:04)
[2024-01-27] MEDS: ASPIR LOW (ENTERIC COATED) 81 MG PO (18:04)
--- NOTE | 2024-01-27 19:33 | PTCARENOTE ---
Pt ambulated 100ft with daughter in hallway with rolling walking. Pt does well with holding walking and guiding, family sings to help motivate pt to walk at home.
[2024-01-27] MEDS: SENOKOT-S PO (19:53)
[2024-01-27] MEDS: MIRALAX PO (19:53)
[2024-01-27 23:54] VITALS: BP 138/78
[2024-01-28] MEDS: ZOSYN 50 IV (01:54)
[2024-01-28] MEDS: TYLENOL PO ×3 (01:54→12:41)
[2024-01-28] MEDS: VANCOCIN 150 IV (05:53)
[2024-01-28 08:00] VITALS: BP 113/69
[2024-01-28] MEDS: MIRALAX PO (08:26)
[2024-01-28] MEDS: SENOKOT-S PO (08:27)
--- NOTE | 2024-01-28 10:35 | W.PN.HOSP.TC ---
Today's Communication/Plan
-
dc
Assessment / Plan
Assessment / Plan
88yo F with Advanced dementia, PMHx of recurrent UTI, HTN, CVA sent with fevers and AMS . Recently was stopped on UTI ppx with hippurate. Found UTI and colitis with constipation. Patient is awake and cooperative with significant dementia and cannot
provide reliable history. Managed for UTI and constipation with colitis. Ucx neg. Had BM. . Mentation back to baseline. Needs a lot of encouragement from family to walk, was able to ambulate with her daughter on the night prior to d/c. Due to
advanced dementia - discussed GOC with family. Advised possible home hospice -they will discuss with PCP. As per detailed conversation - family would like to limit interventions to avoid any invasive procedures. Medically stable for d/c
A/P:
#UTI
#Concern for stercoral colitis
Zosyn
Laxatives
UCX neg
Augmentin reasonable since constipation resolved
#Bacteremia
1 set with GPC - suspect contaminant
Repeat Bcx
VAnco pending identification of bacteria
#Advanced dementia
Patient lives at home with a lot of family support
PT/OT - patient is poorly cooperative, needs family encouragement for participation
#Hx of CVA
on ASA
unclear why no statin - start Lipitor
#4.4cm R ovarian cyst
no follow up advised
#Diverticulosis w/o diverticulitis
height fiber diet
#DJD
tylenol PRN
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
LFT WNL
With advanced dementia - questionable if further w/u needed - discussed with daughter
Will defer to family doctor
#essential HTN
cont Norvasc
#b/l hip pain 2/2 DJD
tylenol as needed
#GOC
with advanced dementia - advised eventual hospice
DVT ppx lovenox
DNR/DNI as per paperwork on admission
I have spent at least 39min reviewing chart, test results, communication with consultants and direct patient care
Anticipated Discharge: Today
Subjective/Interval History
-
Date of Service: January 28, 2024
Objective Data
-
Vital Signs:
Vital Signs
Temp Pulse Resp BP Pulse Ox
98.7 F 93 16 113/69 96
01/28/24 08:00 01/28/24 08:00 01/28/24 08:00 01/28/24 08:00 01/28/24 08:00
I&O
01/27/24 01/28/24 01/29/24
06:59 06:59 06:59
Intake Total 1520 / 1520
Balance 1520 / 1520
Review of Systems
-
Unable to obtain full review of systems at this time due to: Dementia
--- NOTE | 2024-01-28 10:53 | W.DCSUMMARY ---
Discharge Summary
Discharge Data
Date of Admission: 01/24/24
Date of Discharge: 01/28/24
-
Pending Results: No
Hospital Course
88yo F with Advanced dementia, PMHx of recurrent UTI, HTN, CVA sent with fevers and AMS . Recently was stopped on UTI ppx with hippurate. Found UTI and colitis with constipation. Patient is awake and cooperative with significant dementia and cannot
provide reliable history. Managed for UTI and constipation with colitis. Ucx neg. Had BM. . Mentation back to baseline. Needs a lot of encouragement from family to walk, was able to ambulate with her daughter on the night prior to d/c. Due to
advanced dementia - discussed GOC with family. Advised possible home hospice -they will discuss with PCP. As per detailed conversation - family would like to limit interventions to avoid any invasive procedures. Medically stable for d/c
I have spent at least 39min reviewing chart, test results, communication with consultants and direct patient care
Patient was managed for:
#UTI
#Concern for stercoral colitis
#Contaminated Bcx - single set with Staph.epidermitis, repeated Bcx neg
#Advanced dementia
#Hx of CVA
#4.4cm R ovarian cyst
#Diverticulosis w/o diverticulitis
#DJD
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
#essential HTN
Discharge Plan
-
Patient Disposition: Home with Home Care
Discharge Diagnosis/Procedures: UTI, colitis
Diet: Low Cholesterol
Activity: As tolerated
Driving Restrictions: No driving
Referrals:
Génesis Santa CRNP [Family Provider] -
Prescriptions:
New
atorvastatin 40 mg Tablet
40 mg PO QPM Qty: 30 0RF
amoxicillin-pot clavulanate 875-125 mg Tablet
1 tab PO Q12 Qty: 3 0RF
Continued
amlodipine 5 MG tablet
5 mg PO QPM
aspirin 81 MG tablet,delayed release (DR/EC)
81 mg PO QPM
methenamine hippurate 1 gram tablet
1 g PO QPM
Discharge Orders:
Discharge Patient (As Directed); Ordered 01/28/24
Ordered By: Calin Ballesteros
Discharge Date and Time
Print Language: CAMEROONIAN
[2024-01-28] MEDS: AUGMENTIN 875 MG/125 MG 1 TABLET PO (11:03)
--- NOTE | 2024-01-28 11:52 | CM ---
Addendum entered by Katrina Bhatt 01/28/24 13:40:
Ambulance Insurance Authorization # [id number]
Original Note:
CM spoke with patient's daughter, Jaron, via phone to discuss discharge plan; daughter reported that mother is staying at her home; and there are 17 steps to enter her home; requested ambulance transport home
IMM benefit explained; form dated/timed @ 1135
Needs Ambulance Transport to daughter, Jaron's home; address: [address] [place] [address]; phone # [phone]
Ambulance orange picker scheduled for 1600 today
Plan: Discharge to daughter's home via ambulance with resumption of [facility]
FAX # [phone]
== END 2024-01-28 16:37 | disposition home health service (06) | DRG 690 ==
LOC: 4 EAST ACU 20:12
PROVIDERS: ADMITTING PHYSICIAN Internal Medicine; ATTENDING PHYSICIAN Internal Medicine; EMERGENCY PHYSICIAN Student in an Organized Health Care Education/Training Program; FAMILY PHYSICIAN Nurse Practitioner Family
DX: N39.0 Urinary tract infection, site not specified (principal); R53.1 Weakness; F03.90 Unspecified dementia, unspecified severity, without behavioral disturbance, psychotic disturbance, mood disturbance, and anxiety; Z86.73 Personal history of transient ischemic attack (TIA), and cerebral infarction without residual deficits; I10 Essential (primary) hypertension; R00.0 Tachycardia, unspecified; Z87.440 Personal history of urinary (tract) infections; Z79.82 Long term (current) use of aspirin; Z11.52 Encounter for screening for COVID-19; Z66 Do not resuscitate; K59.00 Constipation, unspecified; K52.9 Noninfective gastroenteritis and colitis, unspecified; N83.201 Unspecified ovarian cyst, right side; K57.30 Diverticulosis of large intestine without perforation or abscess without bleeding; M19.90 Unspecified osteoarthritis, unspecified site; K82.8 Other specified diseases of gallbladder; E55.9 Vitamin D deficiency, unspecified; M41.9 Scoliosis, unspecified; Z82.49 Family history of ischemic heart disease and other diseases of the circulatory system
CPT/HCPCS: 51701; 71045; 74018; 74177; 80048; 80053; 81003; 81015; 83605; 84075; 84145; 85025; 85027; 87040; 87086; 87205; 87502; 87811; 96361; 96374; 97116; 97163; 97167; 97530; 97535; 99285; Q9967